=== PATIENT | male | born 1945 | race Caucasian/White ===

== ENCOUNTER 2019-08-04 09:27 | Inpatient (IN) | payer OTHER ==
[~2019-08-04] VITALS: Ht 165.1 cm; Wt 112.3 kg
[~2019-08-04 09:27] MED LIST: ASPIR-LOW81 MG PO; ATENOLOL25 MG PO; HCTZ 25MG25 MG PO; HCTZ12.5TAB PO; MOBIC15 MG PO; MVI; NORCO 325 MG-51 TAB PO; NORCO 325 MG-7.1 TAB PO; PRILOSEC10 MG PO; ROXICODONE 55 MG/TAB PO; ULTRAM 50MG TAB50 MG PO; ZYLOPRIM 100MG100 MG PO; bp pill; diuretic
[2019-08-04 10:38] LABS: BASO % 0.3 % (0.0-2.0); EOS # 0.2 (0.0-0.7); EOS % 1.6 % (0-4.0); GRAN # 12.6 (1.4-6.5); GRAN % 89.6 % (42.2-75.2); HEMATOCRIT 48.6 % (42.0-52.0); HEMOGLOBIN 16.8 g/dl (13.5-18.0); LYMPH # 0.4 (1.2-3.4); LYMPH % 2.8 % (20.0-51.0); MEAN CELL VOLUME 88 fl (80.0-100.0); MEAN CORPUSCULAR HEMOGLOBIN 30 pg (27.0-31.0); MEAN CORPUSCULAR HGB CONC 35 g/dl (33.0-37.0); MEAN PLATELET VOLUME 9.6 fl (7.4-10.4); MONO # 0.7 (0.1-0.6); PLATELET COUNT 249 K/mm3 (130-400); RED BLOOD COUNT 5.54 M/mm3 (4.20-5.60); REDCELL DISTRIBUTION WIDTH-CV 13.2 % (11.5-14.5)
[2019-08-04 10:59] LABS: ALANINE AMINOTRANSFERASE 66 U/L (21-72); ALBUMIN 4.5 gm/dL (3.5-5.0); ALKALINE PHOSPHATASE 119 U/L (50-136); ANION GAP 18 mmol/L (7-16); AST,SGOT 52 U/L (15-37); BILIRUBIN,TOTAL 0.9 mg/dL (0.0-1.0); BLOOD UREA NITROGEN 26 mg/dL (9-20); C-REACTIVE PROTEIN 1.8 mg/dL (0.0-0.9); CALCIUM 9.1 mg/dL (8.4-10.2); CARBON DIOXIDE 20 mmol/L (22-30); CHLORIDE 106 mmol/L (98-107); CREATININE, serum 0.98 (0.66-1.25); GLUCOSE 245 mg/dL (74-106); LIPASE 70 U/L (23-300); POTASSIUM 3.7 mmol/L (3.4-5.0); SODIUM 144 mmol/L (137-145); TOTAL PROTEIN 8.3 gm/dL (6.4-8.2)
[2019-08-04 11:11] LABS: TROPONIN-I < 0.012 ng/mL (0.000-0.035)
[2019-08-04] MEDS ORDERED: LIPITOR 10MG10 MG PO (13:34)
[2019-08-04] MEDS ORDERED: TENORMIN 5050 MG/TAB PO (13:35)
[2019-08-04 15:18] LABS: ACETONE,SERUM NEGATIVE
[2019-08-04 16:41] VITALS: BP 94/45; PULSE 120; TEMP 98.9
--- NOTE | 2019-08-04 16:47 | NUR ---
Patient arrived to floor this afternoon, complaining of feeling tired. Patient has IV in left hand which was inserted in the ER. Patient is currently laying in bed; Skin is clean, dry and intact, lungs are clear and diminished at bases, pulses are 2/2 and heart sounds are regular. Patient notes a dull, mild abdominal pain. Patient wants to rest but no other concerns are voiced at this time.
[2019-08-04] MEDS ORDERED: GLUCOPHAGE500 MG/TAB PO (17:10)
--- NOTE | 2019-08-04 17:56 | NUR ---
Livan has been relaxing in bed since he was admitted to the unit. His family is at the bedside. Antibiotics have been given and fluids are running. Awaiting a urine sample. Patient requests a pitcher of water but does not voice any additional concerns at the moment.
--- NOTE | 2019-08-04 19:04 | NUR ---
Tele called stating pt appeared to be flatlined on monitor, this nurse checked on pt, pt sitting in bed with family at bedside, A&O. New tele stickers placed on pt. Tele called again to state tele looked "messy", new box replaced and pt sitting in bed eating jello. Tele appears to be recording a better reading. No concerns expressed.
[2019-08-04 19:06] VITALS: BP 111/56; PULSE 99; TEMP 98.7
[2019-08-04 19:12] LABS: COLLECTION METHOD CLEAN CATCH
[2019-08-04 19:18] LABS: MUCOUS Present /lpf; PH 5 (5-8); SQUAMOUS EPITHELIAL 0-2 /hpf; URINE APPEARANCE Clear; URINE BACTERIA None Seen /hpf; URINE BILIRUBIN Negative (NEGATIVE); URINE BLOOD Negative (NEGATIVE); URINE COLOR Yellow; URINE GLUCOSE Negative (NEGATIVE); URINE KETONE Negative (NEGATIVE); URINE LEUKOCYTE ESTERASE Negative (NEGATIVE); URINE NITRATE Negative (NEGATIVE); URINE PROTEIN(semi-quant) Negative (NEGATIVE); URINE RBC 0-2 /hpf; URINE UROBILINOGEN Negative (NEGATIVE)
--- NOTE | 2019-08-04 20:00 | NUR ---
Received report from TONI Abdi. Assessment complete. Alert and oriented. Denies any pain or discomfort at this time. Denies abdominal pain or nausea. Meds administered. Tele monitor in place, leads checked. On 2LO2NC, denies SOB. LH intact with fluids infusing, dressing CDI. Needs met. Call light within reach.
[2019-08-04 23:02] VITALS: BP 88/45; PULSE 79; TEMP 97.9
[2019-08-04 23:26] VITALS: BP 98/48
[2019-08-05 03:09] VITALS: BP 95/49; PULSE 75; TEMP 98.8
--- NOTE | 2019-08-05 05:33 | NUR ---
Pt made no complaints during this shift. Meds adminsitered. Needs met. call light within reach.
[2019-08-05 05:56] LABS: BASO # 0.1 (0.0-0.2); BASO % 0.5 % (0.0-2.0); EOS # 0.3 (0.0-0.7); EOS % 2.6 % (0-4.0); GRAN # 8.6 (1.4-6.5); GRAN % 80.9 % (42.2-75.2); HEMATOCRIT 37.3 % (42.0-52.0); LYMPH % 9.1 % (20.0-51.0); MEAN CELL VOLUME 91 fl (80.0-100.0); MEAN CORPUSCULAR HEMOGLOBIN 30 pg (27.0-31.0); MEAN CORPUSCULAR HGB CONC 34 g/dl (33.0-37.0); MONO # 0.7 (0.1-0.6); MONO % 6.5 % (1.7-9.3); PLATELET COUNT 192 K/mm3 (130-400); RED BLOOD COUNT 4.11 M/mm3 (4.20-5.60); REDCELL DISTRIBUTION WIDTH-CV 13.5 % (11.5-14.5)
[2019-08-05 05:59] LABS: HEMOGLOBIN 12.5 g/dl (13.5-18.0)
[2019-08-05 06:11] LABS: ALBUMIN 3.1 gm/dL (3.5-5.0); BILIRUBIN,TOTAL 0.7 mg/dL (0.0-1.0); CALCIUM 7.6 mg/dL (8.4-10.2); CREATININE, serum 0.98 (0.66-1.25); POTASSIUM 3.3 mmol/L (3.4-5.0); TOTAL PROTEIN 6.2 gm/dL (6.4-8.2)
--- NOTE | 2019-08-05 06:52 | NUR ---
Report given to TONI Abdi.
[2019-08-05 07:27] VITALS: BP 111/56; PULSE 72; TEMP 98.3
--- NOTE | 2019-08-05 09:24 | NUR ---
TORRIE met with the patient to discuss discharge plan. The patient lives in [place] with his son-in-law, Bandar Russ. He states that his son, Vernon Robles (ph#[phone]), lives next door to him. He reports independence with ADLs and has a cane available if needed. The patient's PCP is Dr. Valencia at [facility] in [place] and he receives his medications at [facility]. He reports no difficulties obtaining his meds. The patient does not have advanced directives, but he was interested in obtaining a form for DPOA-[facility]. TORRIE provided. The patient plans to return home with his son-in-law upon discharge. No additional needs at this time.
--- NOTE | 2019-08-05 10:50 | NUR ---
Pt assessment completed and charted. Pt tolerated liquid diet well overnight, denies any epsiodes of vomiting or diarrhea. Pt on LR at 74ml/hr, running to w/o complications. Pt on 2L NC, breathing even and unlabored. No concerns expressed by patient.
--- NOTE | 2019-08-05 11:27 | NUR ---
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 No needs right now.
[2019-08-05 11:45] VITALS: BP 1123/71; BP 123/71; PULSE 66; TEMP 98.6
--- NOTE | 2019-08-05 16:27 | NUR ---
Pt discharge instructions discussed and reviewed w/ patient who verbalized understanding. All questions answered, no further concerns expressed. LH IV dc'd w/o complications and catheter tip intact. Pt escorted out via WC by FREDI Russo.
== END 2019-08-05 16:20 | disposition home or self-care (01) | DRG 391 ==
LOC: COL.ER 09:27 → MEDICAL 12:29
PROVIDERS: Emergency Medicine; Physician Assistant; ADMIT Student in an Organized Health Care Education/Training Program
DX: A08.4 Viral intestinal infection, unspecified (principal); J96.01 Acute respiratory failure with hypoxia; E87.2 Acidosis; E78.5 Hyperlipidemia, unspecified; I10 Essential (primary) hypertension; K76.0 Fatty (change of) liver, not elsewhere classified; R16.2 Hepatomegaly with splenomegaly, not elsewhere classified; E16.2 Hypoglycemia, unspecified; M10.9 Gout, unspecified; E86.0 Dehydration
CPT/HCPCS: 99223-AI; 99239; A4216; J0696; J1644; J1815; J2405; J2543; J7030; J7120; Q9967